=== PATIENT | male | born 1940 | race Caucasian/White ===

== ENCOUNTER → 2017-01-09 | Outpatient (CLI) | payer MEDICARE, BC ==
--- NOTE | 2017-01-09 10:58 | XR ---
EXAMINATION TYPE: XR chest 2V DATE OF EXAM: 01/09/2017 COMPARISON: 12/28/2014 HISTORY: Shortness of breath TECHNIQUE: Frontal and lateral views of the chest are obtained. FINDINGS: Scattered senescent parenchymal changes noted. Hyperinflation compatible with COPD. No evidence for infiltrate. No evidence for atelectasis. Heart size is stable. Mediastinal structures are stable and grossly unremarkable. No evidence for hilar prominence. Degenerative changes dorsal spine. IMPRESSION: 1. No evidence for acute pulmonary disease.
== END | disposition home or self-care (01) ==
LOC: RADXRMAIN 10:26
PROVIDERS: ATTEND Family Medicine
DX: R05 Cough (principal)
CPT/HCPCS: 71020

== ENCOUNTER → 2018-05-07 | Outpatient (CLI) | payer BC, MEDICARE ==
--- NOTE | 2018-05-07 16:24 | US ---
EXAMINATION TYPE: US carotid duplex BILAT DATE OF EXAM: 05/07/2018 COMPARISON: NONE CLINICAL HISTORY: 77-year-old male I35.0 STENOSIS. TECHNIQUE: Carotid duplex ultrasound examination. Indirect Doppler criteria is utilized. FINDINGS: EXAM MEASUREMENTS: RIGHT: Peak Systolic Velocity (PSV) cm/sec ----- Right CCA: 78.7 ----- Right ICA: 212.1 ----- Right ECA: 250.9 ICA/CCA ratio: 2.7 RIGHT: End Diastole cm/sec ----- Right CCA: 14.9 ----- Right ICA: 50.4 ----- Right ECA: 11.6 LEFT: Peak Systolic Velocity (PSV) cm/sec ----- Left CCA: 93.4 ----- Left ICA: 178.0 ----- Left ECA: 250.9 ICA/CCA ratio: 1.9 LEFT: End Diastole cm/sec ----- Left CCA: 16.7 ----- Left ICA: 47.9 ----- Left ECA: 25.6 VERTEBRALS (direction of flow): Right Vertebral: Antegrade Left Vertebral: Antegrade Rhythm: Normal [employer] notes: Moderate/severe amount of plaque visualized bilaterally. Elevated velocities visua lized within the right bulb, right ICA, right ECA, left ICA, and left ECA IMPRESSION: Moderate to severe atherosclerotic changes at both bifurcations. Measurements suggest moderate (50-69 %) stenosis of the right greater than left proximal ICAs. CTA to further evaluate as indicated. Criteria for Assigning % of Stenosis / Diameter reduction (Estimation based on the indirect measurements of the internal carotid artery velocities (ICA PSV). 1. Normal (no stenosis)=ICA PSV < 125 cm/s: ratio < 2.0: ICA EDV<40 cm/s. 2. Less than 50% stenosis=ICA PSV < 125 cm/s: ratio < 2.0: ICA EDV<40 cm/s. 3. 50 to 69% stenosis=ICA PSV of 125 to 230 cm/s: ration 2.0 ? 4.0: ICA EDV 40-100 cm/s. 4. Greater than 70% stenosis to near occlusion= ICA PSV > 230 cm/s: ratio > 4.0: ICA EDV > 100 cm/s. 5. Near occlusion= ICA PSV velocities may be low or undetectable: variable ratio and ICA EDV. 6. Total occlusion=unable to detect flow.
== END | disposition home or self-care (01) ==
LOC: RADUSWWP 15:23
PROVIDERS: ATTEND Family Medicine
DX: I65.23 Occlusion and stenosis of bilateral carotid arteries (principal)
CPT/HCPCS: 93880

== ENCOUNTER → 2018-08-11 | Outpatient (CLI) | payer MEDICARE ==
[2018-08-11 16:36] LABS: Blood Urea Nitrogen 15 mg/dL (9-20)
--- NOTE | 2018-08-11 21:22 | CT ---
EXAMINATION TYPE: CT angio neck DATE OF EXAM: 08/11/2018 HISTORY: dizziness. unspeficied disorder ateries. COMPARISON: 05/07/[address] DLP: 414.40 mGycm. Automated Exposure Control for Dose Reduction was Utilized. TECHNIQUE: CTA scan of the neck is performed with IV Contrast, patient injected with 65 mL of Isovue 370, axial images are obtained, coronal and sagittal reformatted images are reviewed. Three-D recons tructed images are created on an independent workstation and reviewed. FINDINGS: Carotid/Vascular Structures: There is a three-vessel vertebral arteries are codominant. Left internal carotid artery origin: There is a large calcified plaque at the origin left internal ca rotid artery contributing to severe stenosis of greater than 70%. This may be critical, the flow lume n appears to be lost on one reconstructed image. Right internal carotid artery origin: Large atheromatous plaque is present at the right internal edge tid artery. Severe stenosis greater than 70% is present. This appears less than on the left. Other: Degenerative cervical spine changes are present with loss of disc height and spondylosis. IMPRESSION: 1. Severe to critical stenosis greater than 70% within the left internal carotid artery origin. 2. Severe stenosis of the right internal carotid artery is also noted although the flow lumen can be better visualized than on the left.
== END | disposition home or self-care (01) ==
LOC: RADCTMAIN 16:00
PROVIDERS: ATTEND Family Medicine
DX: I65.23 Occlusion and stenosis of bilateral carotid arteries (principal)
CPT/HCPCS: 82565; 84520; 70498; 36415; Q9967

== ENCOUNTER → 2018-10-16 | Outpatient (CLI) | payer MEDICARE ==
[2018-10-16 11:49] LABS: Basophils # (A) 0.1 k/uL (0-0.2); Basophils % (A) 1 %; Eosinophils # (A) 0.2 k/uL (0-0.7); Eosinophils % (A) 3 %; HCT 47.4 % (39.0-53.0); Lymphocytes # (A) 2.3 k/uL (1.0-4.8); Lymphocytes % (A) 31 %; MCH 30.6 pg (25.0-35.0); MCHC 31.5 g/dL (31.0-37.0); MCV 96.9 fL (80.0-100.0); Mean Platelet Volume 6.7; Monocytes # (A) 0.6 k/uL (0-1.0); Monocytes % (A) 9 %; Neutrophils % (A) 54 %; Platelet Count 251 k/uL (150-450); RBC 4.89 m/uL (4.30-5.90); RDW 13.2 % (11.5-15.5); WBC 7.4 k/uL (3.8-10.6)
[2018-10-16 12:00] LABS: Anion Gap 8 mmol/L; Blood Urea Nitrogen 14 mg/dL (9-20); Carbon Dioxide 32 mmol/L (22-30); Chloride 100 mmol/L (98-107); Potassium 4.9 mmol/L (3.5-5.1); Sodium 140 mmol/L (137-145)
== END | disposition home or self-care (01) ==
LOC: LABPAT 11:02
PROVIDERS: ATTEND Surgery
DX: Z01.812 Encounter for preprocedural laboratory examination (principal); I65.22 Occlusion and stenosis of left carotid artery
CPT/HCPCS: 36415; 80051; 82565; 84520; 85025

== ENCOUNTER 2018-10-21 05:51 | Inpatient (IN) | payer MEDICARE ==
[~2018-10-21 05:51] MED LIST: MORPHINE SULFATE 4 MG/ML SYRINGE IV PRN; ceFAZolin IN SWFI 2 GM/20 ML SYRINGE IVP ONE
[2018-10-21] MEDS ORDERED: LIDOCAINE 1% 20 ML VIAL (10MG/ML) FOR IV START INTRADERMA ONE (06:47)
[2018-10-21] MEDS ORDERED: ONDANSETRON 4 MG/2 ML VIAL IVP ONE (06:47)
[2018-10-21] MEDS ORDERED: DEXAMETHASONE SOD PHOS (MDV) 100 MG/10 ML VIAL IV ONE (06:48)
[2018-10-21] MEDS: LACTATED RINGERS 1,000 ML IV SCH ×2 (06:48→20:34)
[2018-10-21 06:59] LABS: Glucose,Whole Blood 130 mg/dL (75-99)
[2018-10-21] MEDS ORDERED: ESMOLOL 100 MG/10 ML VIAL ONE (07:15)
[2018-10-21] MEDS ORDERED: GLYCOPYRROLATE 0.2 MG/ML 2 ML VIAL ONE (07:15)
[2018-10-21] MEDS ORDERED: ePHEDrine SULFATE/0.9% NACL/PF 50 MG/5 ML SYRINGE IV ONE (07:15)
[2018-10-21] MEDS ORDERED: SUCCINYLCHOLINE CHLORIDE 100 MG/5 ML SYR IV ONE (07:15)
[2018-10-21] MEDS ORDERED: NEOSTIGMINE 1 MG/ML 10 ML VIAL ONE (07:15)
[2018-10-21] MEDS ORDERED: ROCURONIUM BROMIDE 10 MG/ML 10 ML VIAL IV ONE (07:15)
[2018-10-21] MEDS ORDERED: MIDAZOLAM 2 MG/2 ML VIAL ONE (07:15)
[2018-10-21] MEDS ORDERED: fentaNYL (PF) 50 MCG/ML 2 ML AMP ONE (07:15)
[2018-10-21] MEDS ORDERED: PROPOFOL 10 MG/ML 20 ML VIAL IV ONE (07:15)
[2018-10-21] MEDS ORDERED: PHENYLEPHRINE-0.9% NACL SYG 1 MG/10 ML SYRINGE ONE (07:15)
[2018-10-21] MEDS ORDERED: LIDOCAINE 1% INJ 10MG/ML (20 ML MDV) ONE (07:15)
--- NOTE | 2018-10-21 07:34 | P.GSHP ---
History of Present Illness H&P Date: 10/21/18 Chief Complaint: carotid stenosis 78 year old male with history of carotid stenosis presented originally to the office secondary to worsening stenosis 80-99% on the left and 50-79% on the right seen on carotid duplex. He has been complaining of intermittent dizziness prior to the diagnosis of carotid stenosis. He was sent for CT angiogram which demonstrated severe stenosis greater than 70% on the left. He presents today for elective left carotid endarterectomy with patch angioplasty. He denies any fevers, chills, chest pain or shortness of breath. - Constitutional Constitutional: Reports as per HPI - EENT Eyes: denies blurred vision, denies decreased vision, denies diplopia Ears: bilateral: decreased hearing Ears, nose, mouth and throat: Denies dysphagia, Denies headache - Cardiovascular Cardiovascular: Denies chest pain, Denies claudication, Denies dyspnea on exertion - Respiratory Respiratory: Reports as per HPI - Gastrointestinal Gastrointestinal: Denies abdominal pain, Denies change in bowel habits, Denies coffee ground emesis, Denies constipation - Genitourinary (Male) Genitourinary: Denies dysuria, Denies flank pain, Denies genital pain - Musculoskeletal Musculoskeletal: Reports gait dysfunction, Reports leg numbness/tingling, Denies arm numbness/tingling - Integumentary Integumentary: Reports darkening of skin, Denies boils, Denies change in hair/nails - Neurological Neurological: Reports balance difficulties, Reports gait dysfunction - Psychiatric Psychiatric: Denies anxiety, Denies change in appetite, Denies depression - Hematologic/Lymphatic Hematologic/Lymphatic: Reports easy bruising, Denies easy bleeding Past Medical History Past Medical History: Coronary Artery Disease (CAD), Chest Pain / Angina, Diabetes Mellitus, GERD/Reflux, Hyperlipidemia, Hypertension, Myocardial Infarction ([place]), Osteoarthritis (OA) Additional Past Medical History / Comment(s): "borderline" diabetes- DIET CON TROLLED, occasional chest discomfort Last Myocardial Infarction Date:: 2012 History of Any Multi-Drug Resistant Organisms: None Reported Past Surgical History: Back Surgery, Coronary Bypass/CABG, Heart Catheterization With Stent, Orthopedic Surgery Additional Past Surgical History / Comment(s): CURRENT ISSUE: DIZZINESS, HAS BEEN USING CANE FOR STABILITY. CABG x 2,foot surg, heel spurs, knee surg., thumb surg Past Anesthesia/Blood Transfusion Reactions: No Reported Reaction Date of Last Stent Placement:: 2012 Past Psychological History: No Psychological Hx Reported Smoking Status: Light tobacco smoker Past Alcohol Use History: Occasional Additional Past Alcohol Use History / Comment(s): smokes occasional cigar Past Drug Use History: None Reported - Past Family History Father Family Medical History: Cancer, Hypertension Additional Family Medical History / Comment(s): COLON CA Medications and Allergies Home Medications Medication Instructions Recorded Confirmed Type Aspirin EC [Ecotrin Low Dose] 81 mg PO HS #30 tablet.dr 03/13/14 10/21/18 Rx Carvedilol [Coreg] 6.25 mg PO BID-W/MEALS #60 tab 12/30/14 10/21/18 Rx Nitroglycerin Sl Tabs [Nitrostat] 0.4 mg SUBLINGUAL Q5M PRN #30 tab 12/30/14 10/21/18 Rx Ticagrelor [Brilinta] 90 mg PO BID #60 tab 12/30/14 10/21/18 Rx Calcium Carbonate [Tums] 1 - 2 tab PO BID PRN 10/17/18 10/21/18 History Isosorbide Mononitrate ER [Imdur] 30 mg PO QAM 10/17/18 10/21/18 History Lisinopril [Zestril] 2.5 mg PO HS 10/17/18 10/21/18 History Lovastatin [Mevacor] 20 mg PO HS 10/17/18 10/21/18 History Allergies Allergy/AdvReac Type Severity Reaction Status Date / Time Iodinated Contrast- Oral and Allergy Rash/Hives Verified 10/21/18 06:17 IV Dye [Iodinated Contrast Media - IV Dye] poison justin extract Allergy Unknown Verified 10/21/18 06:17 Surgical - Exam Vital Signs Temp Pulse Resp BP Pulse Ox 97.1 F L 73 18 143/67 94 L 10/21/18 06:46 10/21/18 06:46 10/21/18 06:46 10/21/18 06:46 10/21/18 06:46 - General well developed, well nourished, no distress - Eyes PERRL, normal ocular movement - ENT normal pinna, normal nares - Neck no masses, trachea midline - Respiratory normal expansion - Cardiovascular Rhythm: regular - Abdomen Abdomen: soft, non tender - Integumentary no rash, no growths - Neurologic normal sensation - Psychiatric oriented to time, oriented to person, oriented to place, speech is normal No focal deficits. [employer] strength is equal bilaterally. Tongue is midline no facial droop. Results - Labs Abnormal Lab Results - Last 24 Hours (Table) 10/21/18 Range/Units 06:43 POC Glucose (mg/dL) 130 H (75-99) mg/dL Assessment and Plan (1) Carotid stenosis, bilateral Current Visit: Yes Status: Acute Priority: Medium Code(s): I65.23 - OCCLUSION AND STENOSIS OF BILATERAL CAROTID ARTERIES SNOMED Code(s): 90532290 (2) Carotid stenosis, left Current Visit: Yes Status: Acute Priority: High Code(s): I65.22 - OCCLUSION AND STENOSIS OF LEFT CAROTID ARTERY SNOMED Code(s): 726775947046361 Plan: To the OR for left carotid endarterectomy with patch angioplasty.
[2018-10-21] MEDS ORDERED: SODIUM CHLORIDE 0.9% 500 ML 500 ML with HEPARIN SODIUM,PORCINE 5,000 UNIT IV ONE ×2 (08:07)
[2018-10-21] MEDS ORDERED: THROMBIN (BOVINE) 5,000 UNIT VIAL TOPICAL ONE (08:08)
[2018-10-21] MEDS ORDERED: GELATIN SPONGE,ABSORB (LARGE) 1 EACH SPONGE TOPICAL ONE (08:08)
[2018-10-21] MEDS ORDERED: ceFAZolin 2,000 MG in SODIUM CHLORIDE 0.9% 1,000 ML IRRIGATION ONE (08:14)
[2018-10-21] MEDS ORDERED: LACTATED RINGERS 1,000 ML IV ONE ×4 (09:22→09:50)
[2018-10-21] MEDS ORDERED: MAG HYDROX/AL HYDROX/SIMETH 30 ML CUP PO PRN (09:46)
[2018-10-21] MEDS ORDERED: BENZOCAINE/MENTHOL LOZENG 1 EACH LOZENGE MUCOUS MEM PRN (09:46)
[2018-10-21] MEDS ORDERED: MORPHINE SULFATE 2 MG/ML SYRINGE IVP PRN (09:46)
[2018-10-21] MEDS ORDERED: TRIMETHOBENZAMIDE 100 MG/ML 2 ML VIAL IM PRN (09:46)
[2018-10-21] MEDS ORDERED: ACETAMINOPHEN TAB 325 MG TAB PO PRN (09:46)
--- NOTE | 2018-10-21 09:46 | P.OP ---
Date of Procedure: 10/21/18 Preoperative Diagnosis: Asymptomatic left internal carotid artery stenosis Postoperative Diagnosis: same Procedure(s) Performed: Left carotid endarterectomy with patch angioplasty Implants: bovine pericardial patch Anesthesia: KWABENA Surgeon: Alex Virgen Estimated Blood Loss (ml): 20 IV fluids (ml): 900 Urine output (ml): 50 Pathology: other (carotid plaque) Condition: stable Disposition: PACU Indications for Procedure: 78 year old male with left internal carotid artery stenosis 80-99% presents for elective carotid endarterectomy. Description of Procedure: After written informed consent was obtained the patient all risks benefits and competitions were described the patient is brought to the operative suite and laid in a beachchair position. The area of the left neck was prepped and draped in usual sterile fashion after appropriate anesthetic was performed per the anesthesiologist. A timeout was performed in normal fashion, antibiotics were administered prior to incision. An oblique incision was created just anterior to the sternocleidomastoid muscle and dissection was carried down through the platysma and soft tissue to the carotid sheath. The carotid sheath was then dissected free down to the common carotid artery. Upon dissection the facial vein was encountered and was suture ligated in normal fashion. Meticulous dissection was carried around the common carotid artery and controlled with vessel loops. Dissection was then carried up towards the external carotid and internal carotid arteries. There was dense inflammatory process noted surround ing the vessel. The superior thyroid, external carotid and internal carotid artery were then dissected free in a circumferential manner and controlled with vessel loops. Patient was administered heparin and followed with serial ACTs for appropriate heparinization. Once ACT was over 200 the vessels were then controlled with vascular clamps and an arteriotomy was created at the common carotid artery extending into the internal carotid artery with an 11 blade scalpel and Pott Lopez scissors. Once in the internal carotid artery stump pressures were obtained and demonstrated and mean arterial pressure of 80 and therefore no need for shunting. Endarterectomy was then performed with a [place]/elevator and the plaque was removed from the common carotid extending into the internal carotid artery where it was feathered. Eversion technique was also utilized for the external carotid artery. All free debris was then removed. The distal part of the internal carotid artery was tacked with 7-0 Prolene suture. A bovine pericardial patch was then utilized for patch angioplasty which was performed with a 6-0 Prolene suture in a running fashion. Prior to last sutures being placed the control was released revealing good pulsatile flow through the common carotid artery which was reclamped and control of the internal carotid artery was released revealing good brisk backbleeding. Final sutures were then placed and control was released first from the common carotid external carotid and then finally the internal carotid artery. The area was then copiously irrigated and hemostasis was assured with Gelfoam and thrombin. A 10-Vietnamese LFORENTIN drain was placed in normal fashion. The area was then copiously irrigated with antibiotic solution and the incision was closed in a multilayer fashion. Skin was cleansed and dressings were placed. Patient was awoken in the operating room was following commands and showing no focal deficits. He is moving all extremities to command and tongue was midline. Patient was then sent to PACU for recovery.
[2018-10-21] MEDS ORDERED: NITROGLYCERIN SL TABS 0.4 MG TAB SUBLINGUAL PRN (09:48)
[2018-10-21 11:06] LABS: Basophils % (A) 0 %; Eosinophils # (A) 0.1 k/uL (0-0.7); Eosinophils % (A) 1 %; HGB 13.6 gm/dL (13.0-17.5); Lymphocytes # (A) 0.7 k/uL (1.0-4.8); Lymphocytes % (A) 8 %; MCHC 32.3 g/dL (31.0-37.0); MCV 96.1 fL (80.0-100.0); Mean Platelet Volume 6.7; Monocytes # (A) 0.3 k/uL (0-1.0); Monocytes % (A) 4 %; Neutrophils # (A) 6.7 k/uL (1.3-7.7); Neutrophils % (A) 86 %; Platelet Count 214 k/uL (150-450); RBC 4.37 m/uL (4.30-5.90); WBC 7.8 k/uL (3.8-10.6)
[2018-10-21 11:13] LABS: Glucose,Whole Blood 157 mg/dL (75-99)
[2018-10-21 15:06] LABS: Glucose,Whole Blood 144 mg/dL (75-99)
[2018-10-21] MEDS: HYDROcodone/APAP 5-325MG 1 EACH TAB PO PRN ×2 (17:38→23:31)
[2018-10-21] MEDS: HEPARIN SODIUM,PORCINE 5,000 UNIT/ML 1 ML VIAL SQ SCH ×2 (19:17→23:25)
[2018-10-21] MEDS: CARVEDILOL 6.25 MG TAB PO SCH (19:17)
[2018-10-21] MEDS: TICAGRELOR 90 MG TAB PO SCH (20:32)
[2018-10-21] MEDS ORDERED: LISINOPRIL 2.5 MG TAB PO SCH (21:00)
[2018-10-21] MEDS ORDERED: ATORVASTATIN 10 MG TAB PO SCH (21:00)
[2018-10-21] MEDS ORDERED: ASPIRIN 81 MG PO SCH (21:00)
[2018-10-22] MEDS ORDERED: SODIUM CHLORIDE 0.9% 1,000 ML IV ONE (01:49)
[2018-10-22 04:52] LABS: Basophils % (A) 0 %; Eosinophils % (A) 1 %; HCT 36.1 % (39.0-53.0); HGB 11.5 gm/dL (13.0-17.5); Lymphocytes # (A) 1.8 k/uL (1.0-4.8); Lymphocytes % (A) 19 %; MCH 30.8 pg (25.0-35.0); MCV 96.3 fL (80.0-100.0); Mean Platelet Volume 7.6; Monocytes # (A) 0.6 k/uL (0-1.0); Monocytes % (A) 6 %; Neutrophils # (A) 6.7 k/uL (1.3-7.7); Neutrophils % (A) 71 %; Platelet Count 179 k/uL (150-450); RBC 3.75 m/uL (4.30-5.90); RDW 13.1 % (11.5-15.5); WBC 9.4 k/uL (3.8-10.6)
[2018-10-22 05:23] LABS: Anion Gap 5 mmol/L; Blood Urea Nitrogen 12 mg/dL (9-20); Calcium 8.5 mg/dL (8.4-10.2); Carbon Dioxide 29 mmol/L (22-30); Chloride 101 mmol/L (98-107); Glucose 101 mg/dL (74-99); Potassium 4.4 mmol/L (3.5-5.1); Sodium 135 mmol/L (137-145)
[2018-10-22] MEDS: CARVEDILOL 6.25 MG TAB PO SCH (08:38)
[2018-10-22] MEDS: HEPARIN SODIUM,PORCINE 5,000 UNIT/ML 1 ML VIAL SQ SCH (08:45)
[2018-10-22] MEDS: TICAGRELOR 90 MG TAB PO SCH (08:45)
--- NOTE | 2018-10-22 08:54 | CONS ---
CONSULTATION A 78-year-old white male, history diabetes, hypertension, obesity, dyslipidemia, status post coronary artery disease, status post carotid endarterectomy of the left neck. Stable in ICU, sitting up in a 45 degree angle, talking. He is on Lipitor 10 mg daily, Coreg 6.25 b.i.d., heparin 5000 subcu q.8, [place] 05/325 q.6, Imdur 30 q.a.m., Zestril 2.5 mg daily, Nitrostat, Brilinta 90 mg b.i.d. REVIEW OF SYSTEMS: Fourteen-point review of systems negative except for mentioned in HPI. PHYSICAL EXAMINATION: Pulse is 60s, blood pressure is 87/49, respiratory 14 to 16, his latest blood pressure is 108/39. CARDIOVASCULAR: S1, S2. LUNGS: Transmitted upper airway sounds. HEMATOLOGY: Negative Homans. PSYCH: Fair mood and affect. ABDOMEN: Soft, distended. NECK: Shows a bandage over the left side of his neck. ASSESSMENT: 1. Status post carotid endarterectomy. 2. Hypertension. 3. Diabetes mellitus. 4. Coronary artery disease. The patient is doing well postoperatively. Possibly given fluids due to hypotension. Monitor his blood pressure accordingly. Cardiac medicines are being given. MMODL / IJN: [id number] /
[2018-10-22] MEDS ORDERED: ISOSORBIDE MONONITRATE ER 30 MG TAB.ER.24H PO SCH (09:00)
[2018-10-22 12:16] VITALS: BP 101/51; PULSE 64; RESP 19; TEMP 98
--- NOTE | 2018-10-22 12:32 | P.WNDSOAP ---
Subjective Progress Note Date: 10/22/18 Principal diagnosis: Critical left carotid stenosis Patient has no complaints. He has had no symptoms neurologically. He has ambulated without difficulty. He is voiding. He has minimal discomfort in his neck. Objective - Vital Signs Vital signs: Vital Signs Temp 98.0 F 10/22/18 12:00 Pulse 64 10/22/18 12:00 Resp 19 10/22/18 12:00 BP 101/51 10/22/18 12:00 Pulse Ox 94 L 10/22/18 12:00 Intake & Output 10/21/18 10/22/18 10/22/18 18:59 06:59 18:59 Intake Total 1802 2340 1300 Output Total 390 540 20 Balance 1412 1800 1280 Weight 104.2 kg Intake: IV 1502 2000 600 LR @ 100 1000 600 Sodium Chloride 0.9% 1, 1000 000 ml @ 999 mls/hr IV . Q1H1M ONE Rx#:[id number] Intake, IV Titration 300 100 Amount Lactated Ringers 1,000 ml 300 100 @ 20 mls/hr IV .Q24H JODIE Rx#:[id number] Oral 240 700 Output: Drainage 20 Left Neck 20 Urine 370 540 Estimated Blood Loss 20 Other: Voiding Method Indwelling Catheter Indwelling Catheter Toilet # Voids 1 # Bowel Movements 1 ABP, PAP, CO, CI - Last Documented Arterial Blood Pressure 95/40 - Exam Vital signs are stable. He has had some pressures in the 90s which have been asymptomatic. He is neurologically intact. His neck shows no swelling or drainage and the incision is intact. - Labs CBC & Chem 7: 10/22/18 04:19 10/22/18 04:19 Labs: Abnormal Lab Results - Last 24 Hours (Table) 10/21/18 10/22/18 10/22/18 Range/Units 15:00 04:19 04:19 RBC 3.75 L (4.30-5.90) m/uL Hgb 11.5 L (13.0-17.5) gm/dL Hct 36.1 L (39.0-53.0) % Sodium 135 L (137-145) mmol/L Creatinine 0.60 L (0.66-1.25) mg/dL Glucose 101 H (74-99) mg/dL POC Glucose (mg/dL) 144 H (75-99) mg/dL Assessment and Plan (1) Carotid stenosis, left Current Visit: Yes Status: Acute Priority: High Code(s): I65.22 - OCCLUSION AND STENOSIS OF LEFT CAROTID ARTERY SNOMED Code(s): 097716115589526 Plan: The patient has recovered nicely from his left carotid endarterectomy. We have given him thorough wound care instructions. We've given him activity instructions. He will at is antihypertensives one by one at home as long as his blood pressure remains over 100. He does take his blood pressure at home and is used to doing this.
== END 2018-10-22 13:53 | disposition home or self-care (01) | DRG 39 ==
LOC: 2ORMAIN 05:51 → 2SICU 14:45
PROVIDERS: ADMIT Surgery; ATTEND Surgery
PROC: 03UL0KZ Supplement Left Internal Carotid Artery with Nonautologous Tissue Substitute, Open Approach (ICD-10-PCS; 2018-10-21)
PROC: 03CL0ZZ Extirpation of Matter from Left Internal Carotid Artery, Open Approach (ICD-10-PCS; principal; 2018-10-21 07:30)
DX: I65.23 Occlusion and stenosis of bilateral carotid arteries (principal); E11.9 Type 2 diabetes mellitus without complications; I25.10 Atherosclerotic heart disease of native coronary artery without angina pectoris; K21.9 Gastro-esophageal reflux disease without esophagitis; E78.5 Hyperlipidemia, unspecified; I10 Essential (primary) hypertension; I25.2 Old myocardial infarction; E78.00 Pure hypercholesterolemia, unspecified; I83.93 Asymptomatic varicose veins of bilateral lower extremities; M19.042 Primary osteoarthritis, left hand; M19.041 Primary osteoarthritis, right hand; E66.9 Obesity, unspecified; Z68.28 Body mass index [BMI] 28.0-28.9, adult; F17.290 Nicotine dependence, other tobacco product, uncomplicated; Z71.6 Tobacco abuse counseling; Z79.02 Long term (current) use of antithrombotics/antiplatelets; Z79.82 Long term (current) use of aspirin; Z79.899 Other long term (current) drug therapy; Z80.0 Family history of malignant neoplasm of digestive organs; Z95.1 Presence of aortocoronary bypass graft; Z95.5 Presence of coronary angioplasty implant and graft; Z91.041 Radiographic dye allergy status; Z91.048 Other nonmedicinal substance allergy status; Z82.49 Family history of ischemic heart disease and other diseases of the circulatory system
CPT/HCPCS: 80048; 85025; 86850; 86900; 86901; 88304; 88311

== ENCOUNTER 2018-12-19 10:56 | Observation (INO) | payer MEDICARE ==
[2018-12-19 11:49] LABS: Glucose,Whole Blood 125 mg/dL (75-99)
[2018-12-19] MEDS ORDERED: IPRATROPIUM-ALBUTEROL 3 ML NEB INHALATION PRN (13:00)
[2018-12-19] MEDS ORDERED: NITROGLYCERIN SL TABS 0.4 MG TAB SUBLINGUAL PRN (13:02)
--- NOTE | 2018-12-19 13:57 | P.CNPUL ---
History of Present Illness Consult date: 12/19/18 Reason for consult: dyspnea, cough, COPD, pneumonia Chief complaint: Symptoms of ongoing cough with fever for almost a week History of present illness: 78-year-old male with history of significant coronary artery disease history of prior bypass surgery has been more short of breath for last 2-3 months but however about a week ago having cough congestion and low-grade fever up to point getting more short of breath than baseline for the last 2 days decided to come in the hospital for further evaluation, x-ray is suggestive of right lower lobe developing infiltrate, denies any hemoptysis denies any night sweats fever or chills he's been evaluated by cardiovascular services for chronic congestive heart failure and coronary artery disease Review of Systems All systems: negative Past Medical History Past Medical History: Coronary Artery Disease (CAD), Chest Pain / Angina, Diabetes Mellitus, GERD/Reflux, Hyperlipidemia, Hypertension, Myocardial Infarction ([place]), Osteoarthritis ([place]), Pneumonia, Vascular Disorder Additional Past Medical History / Comment(s): "Borderline" diabetes- DIET CONTROLLED, vertigo, murmur, chronic back pain, occasional lower extremity edema, varicosities, diverticular disease, sinus problems Last Myocardial Infarction Date:: 2012 History of Any Multi-Drug Resistant Organisms: None Reported Past Surgical History: Back Surgery, Coronary Bypass/CABG, Heart Catheterization With Stent, Orthopedic Surgery Additional Past Surgical History / Comment(s): 10/21/18 L caratid endartectomy, 1994 CABG 3 vessels, 2007 CABG 3 vessels, PCI with several stents, low back surgery, R foot hammer toe surgery, R heel spur surgery, L knee arthroscopy, R thumb surgery d/t fracture, pilonidal cyst, colonoscopy. Past Anesthesia/Blood Transfusion Reactions: No Reported Reaction Date of Last Stent Placement:: 2012 Smoking Status: Former smoker - Past Family History Mother Family Medical History: Cancer, Diabetes Mellitus Additional Family Medical History / Comment(s): Mother of liver cancer. Father Family Medical History: Cancer, Hypertension Additional Family Medical History / Comment(s): COLON CA Medications and Allergies Home Medications Medication Instructions Recorded Confirmed Type Aspirin EC [Ecotrin Low Dose] 81 mg PO HS #30 tablet. 03/13/14 12/19/18 Rx Carvedilol [Coreg] 6.25 mg PO BID-W/MEALS #60 tab 12/30/14 12/19/18 Rx Nitroglycerin Sl Tabs [Nitrostat] 0.4 mg SUBLINGUAL Q5M PRN #30 tab 12/30/14 12/19/18 Rx Ticagrelor [Brilinta] 90 mg PO BID #60 tab 12/30/14 12/19/18 Rx Isosorbide Mononitrate ER [Imdur] 30 mg PO QAM 10/17/18 12/19/18 History Lisinopril [Zestril] 2.5 mg PO HS 10/17/18 12/19/18 History Lovastatin [Mevacor] 20 mg PO HS 10/17/18 12/19/18 History Allergies Allergy/AdvReac Type Severity Reaction Status Date / Time Iodinated Contrast- Oral and Allergy Rash/Hives Verified 12/19/18 11:54 IV Dye [Iodinated Contrast Media - IV Dye] poison justin extract Allergy Unknown Verified 12/19/18 11:54 Physical Exam Vitals: Intake and Output 12/18/18 12/19/18 12/19/18 22:59 06:59 14:59 Other: Weight 103 kg - Constitutional General appearance: cooperative, disheveled, mild distress, morbidly obese - EENT Eyes: EOMI, PERRLA, normal appearance ENT: normal oropharynx Ears: bilateral: normal - Neck Neck: normal ROM Carotids: bilateral: upstroke normal Thyroid: bilateral: normal size - Respiratory Respiratory: bilateral: diminished, rales (Right more than left), negative: CTA, dullness, rhonchi, wheezing, prolonged expiration, prolonged inspiration, other - Cardiovascular Rhythm: regular Heart sounds: normal: S1, S2 - Gastrointestinal General gastrointestinal: decreased bowel sounds, distended, normal bowel sounds - Integumentary Integumentary: normal - Neurologic Neurologic: CNII-XII intact - Musculoskeletal Musculoskeletal: gait normal, generalized weakness, strength equal bilaterally - Psychiatric Psychiatric: A&O x's 3, appropriate affect, intact judgment & insight Results - Laboratory Findings Abnormal lab findings: Abnormal Labs 12/19/18 11:38 POC Glucose (mg/dL) 125 H - Diagnostic Findings Chest x-ray: report reviewed, image reviewed (Developing right lower lobe infiltrate) Assessment and Plan Assessment: Right lower lobe pneumonia Increased cough congestion shortness of breath or probably related to that Coronary Artery disease Hypertension hypertensive cardiovascular disease Moderate obesity Component of heart failure suspect acute on chronic systolic heart failure Plan: Agree with gentle diuresis We'll start broad spectrum antibiotics Agree with bronchodilators Patient might need a sleep study as outpatient Further plan of care as per clinical response of the patient Time with Patient: Greater than 30
[2018-12-19 14:00] LABS: Basophils # (A) 0.1 k/uL (0-0.2); Basophils % (A) 1 %; Eosinophils # (A) 0.3 k/uL (0-0.7); Eosinophils % (A) 3 %; HCT 46.8 % (39.0-53.0); Lymphocytes # (A) 2.2 k/uL (1.0-4.8); Lymphocytes % (A) 30 %; MCH 30.2 pg (25.0-35.0); MCHC 31.3 g/dL (31.0-37.0); MCV 96.5 fL (80.0-100.0); Mean Platelet Volume 7.1; Monocytes # (A) 0.7 k/uL (0-1.0); Monocytes % (A) 9 %; Neutrophils # (A) 3.9 k/uL (1.3-7.7); Neutrophils % (A) 54 %; Platelet Count 236 k/uL (150-450); RBC 4.85 m/uL (4.30-5.90); RDW 13.1 % (11.5-15.5); WBC 7.3 k/uL (3.8-10.6)
[2018-12-19] MEDS: PANTOPRAZOLE 40 MG/10 ML VIAL IVP SCH (14:02)
[2018-12-19] MEDS: FUROSEMIDE 10 MG/ML 2 ML VIAL IV SCH ×2 (14:02→20:40)
[2018-12-19 14:11] LABS: HGB 14.6 gm/dL (13.0-17.5)
[2018-12-19 14:14] LABS: ALT 18 U/L (21-72); AST 21 U/L (17-59); Albumin 3.9 g/dL (3.5-5.0); Alkaline Phosphatase 58 U/L (38-126); Anion Gap 6 mmol/L; Blood Urea Nitrogen 14 mg/dL (9-20); Calcium 9.3 mg/dL (8.4-10.2); Carbon Dioxide 34 mmol/L (22-30); Chloride 98 mmol/L (98-107); Glucose 163 mg/dL (74-99); Potassium 4.6 mmol/L (3.5-5.1); Sodium 138 mmol/L (137-145); Total Bilirubin 0.6 mg/dL (0.2-1.3); Total Protein 6.8 g/dL (6.3-8.2)
--- NOTE | 2018-12-19 14:52 | XR ---
EXAMINATION TYPE: XR chest 2V DATE OF EXAM: 12/19/2018 COMPARISON: Prior chest x-ray 01/09/2017 HISTORY: Shortness of breath TECHNIQUE: Frontal and lateral views of the chest are obtained. FINDINGS: Patient is post median sternotomy. There are overlying cardiac leads. Right hemidiaphragm i s mildly elevated. There is no focal air space opacity, pleural effusion, or pneumothorax seen. The cardiac silhouette size is within normal limits. The osseous structures are intact. IMPRESSION: No acute cardiopulmonary process.
[2018-12-19] MEDS: IPRATROPIUM-ALBUTEROL 3 ML NEB INHALATION SCH ×2 (16:05→19:55)
[2018-12-19] MEDS: INSULIN ASPART (NovoLOG) 100 UNIT/ML VIAL SQ SCH ×2 (17:11→20:40)
[2018-12-19] MEDS: CARVEDILOL 6.25 MG TAB PO SCH (17:12)
[2018-12-19 17:16] LABS: Glucose,Whole Blood 129 mg/dL (75-99)
--- NOTE | 2018-12-19 18:03 | CONS ---
CONSULTATION Mr. Thakur is a 78-year-old male who is followed on a regular basis by Dr. Astrid Nance and presented with symptoms of progressive dyspnea. He is a direct admit from Dr. Carter's office. He had coronary artery bypass grafting and subsequent redo bypass with saphenous vein graft to the circumflex and to the right coronary artery, and he had a prior SIERRA to the LAD. He has been doing relatively well, but recently for the last week or so he has been complaining of progressive dyspnea, yesterday worse, unable to sleep. He has no weight gain. He has mild peripheral edema that according to him has not changed. He has recent sinus drainage. He denies any chest discomfort. No dizziness. No palpitation. He has no history of malignant arrhythmia. Since his last cardiac catheterization performed in December of 2014, he has been doing well, according to him. At that time he had a patent SIERRA to LAD and a patent saphenous vein graft to the left circumflex and saphenous vein graft to the PDA. The LAD is totally occluded proximally. The right coronary artery is totally occluded proximally as well and the left circumflex has diffuse disease with calcification. The patient's coronary risk factors are remarkable for hypertension and hyperlipidemia. He is a nonsmoker and is nondiabetic. His medication included: 1. Aspirin. 2. Coreg 6.25 mg twice a day. 3. Isosorbide mononitrate 30 mg daily. 4. Lisinopril 2.5 mg daily. 5. Lovastatin 20 mg daily. 6. Brilinta 90 mg twice a day. REVIEW OF SYSTEMS: RESPIRATORY SYSTEM: He has dyspnea on exertion. He has some sinus drainage, marked cough. No wheezing. GI SYSTEM: No recent GI bleeding. No peptic ulcer disease. SYSTEM: No dysuria or hematuria. NERVOUS SYSTEM: No history of stroke or seizure. PHYSICAL EXAMINATION: He is a 78-year-old male, alert, oriented, in no apparent distress. Blood pressure 130/73 with a heart rate in the 80s. HEAD: Normocephalic. Eyes: Sclerae anicteric. NECK: Good carotid upstroke. No bruit. LUNGS: A few crackles at the bases. HEART: Regular rate, rhythm. S1, S2. No S3, with systolic ejection murmur 2/6 heard at the base, ejection type. No diastolic murmur no rub. ABDOMEN: Soft, nontender. Positive bowel sounds. No organomegaly. EXTREMITIES: Trace to 1+ edema. Lab data and EKG are pending. IMPRESSION: 1. Symptoms of progressive dyspnea of unclear etiology in a patient with known history of coronary artery disease. There are no overt signs of angina pectoris. 2. Status post redo coronary artery bypass grafting and prior percutaneous revascularization. 3. History of hypertension. 4. History of hyperlipidemia. RECOMMENDATIONS: The patient will be continued on his home medication. I will add IV Lasix for him for now. I will obtain an echocardiogram with Doppler. Follow his cardiac enzymes. Depending on the results of his testing, further recommendations will be made. Thank you for this consult. Will follow with you. SHAWANDA / ABDIAZIZ: [id number] /
[2018-12-19] MEDS: TICAGRELOR 90 MG TAB PO SCH (20:40)
[2018-12-19 20:41] LABS: Glucose,Whole Blood 154 mg/dL (75-99)
[2018-12-19] MEDS ORDERED: ATORVASTATIN 40 MG TAB PO SCH (21:00)
[2018-12-19] MEDS ORDERED: ASPIRIN 81 MG PO SCH (21:00)
[2018-12-19] MEDS ORDERED: ATORVASTATIN 10 MG TAB PO SCH (21:00)
--- NOTE | 2018-12-19 22:04 | CT ---
EXAMINATION TYPE: CT chest wo con DATE OF EXAM: 12/19/2018 COMPARISON: None HISTORY: dyspnea CT DLP: 451.9 mGycm. Automated Exposure Control for Dose Reduction was Utilized. TECHNIQUE: CT scan of the thorax is performed without IV contrast. FINDINGS: There is some coarse interstitial linear density in the right lower lobe consistent with some scarrin g and atelectasis. There is atherosclerotic vascular calcification. There is coronary artery calcific ation. Thoracic aorta is atheromatous. There are no hilar masses. There is no mediastinal adenopathy. There is no pericardial effusion. Upper abdominal soft tissues are intact. There is 2 cm cystic in t he anterior right lobe of the liver. The thoracic spine is intact. I see no bony destructive process. There are sternal wires. IMPRESSION: There is some scarring and atelectasis at the right posterior lung base. No evidence of a pulmonary mass. Atherosclerotic vascular disease.
[2018-12-20 06:03] LABS: Glucose,Whole Blood 121 mg/dL (75-99)
[2018-12-20] MEDS: INSULIN ASPART (NovoLOG) 100 UNIT/ML VIAL SQ SCH ×2 (06:11→12:05)
[2018-12-20] MEDS: CARVEDILOL 6.25 MG TAB PO SCH (06:45)
[2018-12-20 07:38] LABS: Basophils % (A) 1 %; Eosinophils # (A) 0.2 k/uL (0-0.7); Eosinophils % (A) 3 %; HCT 52.9 % (39.0-53.0); HGB 16.3 gm/dL (13.0-17.5); Lymphocytes # (A) 2.1 k/uL (1.0-4.8); Lymphocytes % (A) 25 %; MCH 29.5 pg (25.0-35.0); MCHC 30.8 g/dL (31.0-37.0); MCV 95.9 fL (80.0-100.0); Mean Platelet Volume 6.9; Monocytes # (A) 0.6 k/uL (0-1.0); Monocytes % (A) 7 %; Neutrophils # (A) 5.3 k/uL (1.3-7.7); Neutrophils % (A) 63 %; Platelet Count 249 k/uL (150-450); RBC 5.51 m/uL (4.30-5.90); RDW 13.1 % (11.5-15.5); WBC 8.4 k/uL (3.8-10.6)
[2018-12-20] MEDS: IPRATROPIUM-ALBUTEROL 3 ML NEB INHALATION SCH ×2 (07:45→11:27)
[2018-12-20 08:00] LABS: Anion Gap 5 mmol/L; Blood Urea Nitrogen 15 mg/dL (9-20); Calcium 9.9 mg/dL (8.4-10.2); Carbon Dioxide 37 mmol/L (22-30); Chloride 96 mmol/L (98-107); Glucose 135 mg/dL (74-99); Potassium 4.6 mmol/L (3.5-5.1); Sodium 138 mmol/L (137-145)
--- NOTE | 2018-12-20 08:53 | ECHOF ---
Referral Reason:LV fx MEASUREMENTS -------- HEIGHT: 185.4 cm WEIGHT: 103.0 kg BP: 106/73 RVIDd: 2.8 cm (< 3.3) IVSd: 1.2 cm (0.6 - 1.1) LVIDd: 5.2 cm (3.9 - 5.3) LVPWd: 1.3 cm (0.6 - 1.1) IVSs: 1.6 cm LVIDs: 3.9 cm LVPWs: 1.6 cm LA Diam: 3.8 cm (2.7 - 3.8) LAESV Index (A-L): 27.89 ml/m Ao Diam: 4.1 cm (2.0 - 3.7) AV Cusp: 1.9 cm (1.5 - 2.6) MV EXCURSION: 13.536 mm (> 18.000) MV EF SLOPE: 39 mm/s (70 - 150) EPSS: 1.4 cm MV E Shaw: 1.18 m/s MV DecT: 271 ms MV A Shaw: 1.34 m/s MV E/A Ratio: 0.88 RAP: 5.00 mmHg RVSP: 28.15 mmHg FINDINGS -------- Sinus rhythm. This was a technically difficult study with suboptimal apical views. The left ventricular size is normal. There is mild concentric left ventricular hypertrophy. Overa ll left ventricular systolic function is low-normal with, an EF between 50 - 55 %. Basal inferosept al LV wall motion is hypokinetic. Mid inferoseptal LV wall motion is hypokinetic. The right ventricle is normal in size. Normal LA size by volume 22+/-6 ml/m2. The right atrium is normal in size. 3 ml of Lumason was utilized for enhancement of images. Aneurysmal Interatrial septum. There is mild aortic valve sclerosis. Mild mitral annular calcification present. Mild tricuspid regurgitation present. Right ventricular systolic pressure is normal at < 35 mmHg. Trace/mild (physiologic) pulmonic regurgitation. The aortic root is dilated measuring 4.1cm. IVC Not well visulized. There is no pericardial effusion. CONCLUSIONS -------- 1. Sinus rhythm. 2. This was a technically difficult study with suboptimal apical views. 3. The left ventricular size is normal. 4. There is mild concentric left ventricular hypertrophy. 5. Overall left ventricular systolic function is low-normal with, an EF between 50 - 55 %. 6. Basal inferoseptal LV wall motion is hypokinetic. 7. Mid inferoseptal LV wall motion is hypokinetic. 8. The right ventricle is normal in size. 9. Normal LA size by volume 22+/-6 ml/m2. 10. The right atrium is normal in size. 11. 3 ml of Lumason was utilized for enhancement of images. 12. Aneurysmal Interatrial septum. 13. There is mild aortic valve sclerosis. 14. Mild mitral annular calcification present. 15. Mild tricuspid regurgitation present. 16. Right ventricular systolic pressure is normal at < 35 mmHg. 17. Trace/mild (physiologic) pulmonic regurgitation. 18. The aortic root is dilated measuring 4.1cm. 19. IVC Not well visulized. 20. There is no pericardial effusion. SENIOR MEDICAL DIRECTOR: Violeta Rdz RDCS
[2018-12-20] MEDS ORDERED: LISINOPRIL 2.5 MG TAB PO SCH (09:00)
[2018-12-20] MEDS: FUROSEMIDE 10 MG/ML 2 ML VIAL IV SCH (09:25)
[2018-12-20] MEDS: PANTOPRAZOLE 40 MG/10 ML VIAL IVP SCH (09:26)
[2018-12-20] MEDS: TICAGRELOR 90 MG TAB PO SCH (09:26)
[2018-12-20 10:31] VITALS: BP 152/73; RESP 18; TEMP 98.5
[2018-12-20 11:37] VITALS: PULSE 80
[2018-12-20 11:55] LABS: Glucose,Whole Blood 134 mg/dL (75-99)
[2018-12-20 12:19] VITALS: BMI 29.6
--- NOTE | 2018-12-20 14:45 | PN ---
PROGRESS NOTE Mr. Thakur is a 78-year-old male with a history of coronary artery disease status post multiple percutaneous revascularization who presented with symptoms of dyspnea with no overt signs of congestive heart failure. He is feeling much better today. His breathing is stable. He is denying any chest pain. He denies any dizziness or palpitation. He had an echocardiogram revealed a preserved systolic function with a mild tricuspid regurgitation. He continues to be at this time on aspirin once a day, Lipitor 40 mg daily, Coreg 6.25 mg twice a day, Lasix 20 mg IV q.12 hours, lisinopril 2.5 mg daily and Brilinta 90 mg daily. PHYSICAL EXAMINATION: Blood pressure running in the 130s with a heart rate in the 80s. LUNGS: No wheezes. HEART: Regular rate and rhythm, S1, S2. No S3. No rub. ABDOMEN: Soft and nontender. EXTREMITIES: No significant edema. LAB DATA: Lab data revealed a BUN and creatinine of 15 and 0.74, potassium 4.6 and hemoglobin of 16.3. IMPRESSION: 1. Symptoms of dyspnea. No evidence to suggest congestive heart failure, possible tracheobronchitis. 2. History of coronary artery disease status post multiple stenting and coronary artery bypass grafting with redo surgery. 3. History of hypertension. RECOMMENDATION: I will stop his IV Lasix. I will increase the dose of the lisinopril. His Brilinta will be stopped. I have discussed that with Dr. Astrid Nance who is his primary business development sales executive and has recommended to stop it. We will continue to increase his activity. From the cardiac standpoint, he is stable and no further cardiac workup will be needed at this point. MMODL / IJN: [id number] /
--- NOTE | 2018-12-20 15:53 | P.PN ---
Subjective Progress Note Date: 12/20/18 Principal diagnosis: Right lower lobe pneumonia, cough related to pneumonia, COPD, coronary artery disease, hypertension hypertensive cardiovascular disease, morbid obesity, heart failure acute on chronic systolic 12/20/2018, patient seen and evaluated examined during the rounds doing well he has the an echocardiogram as well as computed tomography scan yesterday which reviewed the computed tomography scan showed right lower lobe pneumonia, echocardiogram revealed ejection fraction of 50-55% no evidence of pulmonary hypertension, patient is tolerating antibiotics well his cough and congestion improved significantly remains afebrile 78-year-old male with history of significant coronary artery disease history of prior bypass surgery has been more short of breath for last 2-3 months but however about a week ago having cough congestion and low-grade fever up to point getting more short of breath than baseline for the last 2 days decided to come in the hospital for further evaluation, x-ray is suggestive of right lower lobe developing infiltrate, denies any hemoptysis denies any night sweats fever or chills he's been evaluated by cardiovascular services for chronic congestive heart failure and coronary artery disease Objective - Vital Signs Vital signs: Vital Signs Temp 98.5 F 12/20/18 07:45 Pulse 80 12/20/18 11:36 Resp 18 12/20/18 07:45 BP 152/73 12/20/18 07:45 Pulse Ox 92 L 12/19/18 16:00 Intake & Output 12/19/18 12/20/18 12/20/18 18:59 06:59 18:59 Intake Total 700 360 Output Total 1650 200 Balance -1650 500 360 Weight 103 kg 101.8 kg 101.8 kg Intake: Oral 700 360 Output: Urine 1650 200 Other: Voiding Method Urinal Urinal # Voids 1 - Exam - Constitutional General appearance: cooperative, disheveled, mild distress, morbidly obese - EENT Eyes: EOMI, PERRLA, normal appearance ENT: normal oropharynx Ears: bilateral: normal - Neck Neck: normal ROM Carotids: bilateral: upstroke normal Thyroid: bilateral: normal size - Respiratory Respiratory: bilateral: diminished, rales (Right more than left), negative: CTA, dullness, rhonchi, wheezing, prolonged expiration, prolonged inspiration, other - Cardiovascular Rhythm: regular Heart sounds: normal: S1, S2 - Gastrointestinal General gastrointestinal: decreased bowel sounds, distended, normal bowel sounds - Integumentary Integumentary: normal - Neurologic Neurologic: CNII-XII intact - Musculoskeletal Musculoskeletal: gait normal, generalized weakness, strength equal bilaterally - Psychiatric Psychiatric: A&O x's 3, appropriate affect, intact judgment & insight - Labs CBC & Chem 7: 12/20/18 07:11 12/20/18 07:11 Labs: Abnormal Lab Results - Last 24 Hours (Table) 12/19/18 12/19/18 12/20/18 Range/Units 17:04 20:30 06:02 MCHC (31.0-37.0) g/dL Chloride (98-107) mmol/L Carbon Dioxide (22-30) mmol/L Glucose (74-99) mg/dL POC Glucose (mg/dL) 129 H 154 H 121 H (75-99) mg/dL 12/20/18 12/20/18 12/20/18 Range/Units 07:11 07:11 11:44 MCHC 30.8 L (31.0-37.0) g/dL Chloride 96 L (98-107) mmol/L Carbon Dioxide 37 H (22-30) mmol/L Glucose 135 H (74-99) mg/dL POC Glucose (mg/dL) 134 H (75-99) mg/dL Assessment and Plan Assessment: Right lower lobe pneumonia Increased cough congestion shortness of breath or probably related to that Coronary Artery disease Hypertension hypertensive cardiovascular disease Moderate obesity Component of heart failure suspect acute on chronic systolic heart failure Plan: Continue gentle diuresis Continue broad spectrum antibiotics, can be switched to oral at the time of discharge Agree with bronchodilators Patient might need a sleep study as outpatient Further evaluation as outpatient Further plan of care as per clinical response of the patient
--- NOTE | 2018-12-20 19:27 | HP ---
HISTORY AND PHYSICAL SUBJECTIVE: This is a white male who is admitted with exertional dyspnea, unstable angina and possible pneumonia due to worsening respiratory distress of acute nature. He is unable to lay flat at night or sleep due to significant dyspnea. He has had no hemoptysis. He has had no significant weight gain. Pulmonary saw him and thought he had pneumonia. He has been started on antibiotics and steroids. Cardiology is assessing him. PAST MEDICAL HISTORY: Coronary artery disease. Recent carotid artery surgery, borderline diabetes, hypertension, dyslipidemia, GERD. He has had back surgery, CABG surgery, heart catheterization, stents, orthopedic surgeries, carotid endarterectomy as mentioned above. 14-point review of systems as mentioned. FAMILY HISTORY: Mother diabetes mellitus and liver cancer. Father had cancer of the colon and hypertension. MEDICATIONS: Medications at home include: Brilinta, Zestril, Mevacor, Imdur, Coreg, Ecotrin. PHYSICAL EXAMINATION: HEENT: Pupils equal, round, reactive to light and accommodation. CARDIOVASCULAR: S1, S2. HEMATOLOGY negative Homans. PSYCH: Fair mood and affect. OPHTHALMOLOGIC: Pupils equal, round, reactive to light and accommodation. LUNGS show scattered rales and rhonchi x4. CARDIOVASCULAR S1, S2. ASSESSMENT: 1. Right lower lobe pneumonia. 2. Increased shortness of breath, unclear etiology. 3. Unstable angina. 4. Coronary artery disease. 5. Carotid artery disease. 6. Hypertensive. 7. Diabetes mellitus. Cardiology and Pulmonary clearance will be given prior to discharge and evaluate for significant shortness of breath. MMODL / IJN: [id number] /
--- NOTE | 2018-12-20 20:36 | DS ---
DISCHARGE SUMMARY DISCHARGE MEDICATIONS: 1. Aspirin 81 mg daily. 2. Coreg 6.25 b.i.d. 3. Nitro sublingual p.r.n. 4. Brilinta 90 mg b.i.d. 5. Mevacor 20 mg daily. 6. Imdur 30 mg q.a.m. 7. Lisinopril 5 mg daily. 8. Lasix 20 mg daily. 9. Augmentin 875 1 b.i.d. for a week. 10.Medrol Dosepak. CONDITION: Stable. PROGNOSIS: Guarded. Ambulate as tolerated. HOSPITAL COURSE: White male came in with exertional dyspnea of significant nature, unable to sleep due to significant shortness of breath. He was treated for right lower lobe pneumonia, diagnosed by Pulmonology. He was switched to oral antibiotics as he was saturating good on room air. He is cleared for myocardial infarction from cardiac standpoint. Echo was good. CT scan of the chest showed no significant pulmonary embolism. He will follow up as an outpatient in my office. MMKASH / PHOEBEN: [id number] /
[2018-12-21] MEDS ORDERED: FUROSEMIDE 20 MG TAB PO SCH (09:00)
[2018-12-21] MEDS ORDERED: LISINOPRIL 5 MG TAB PO SCH (09:00)
--- NOTE | 2018-12-23 02:55 | CDI ---
Documentation Clarification Form Date:12/23/18 From: Cj Nance Phone: call to [phone] Admit Date: 12/19/2018 1:01:00 PM Patient Name: Blanco Thakur Visit Number: [id number] Discharge Date: 12/20/2018 4:04:00 PM ATTENTION: The Clinical Documentation Specialists (CDI) and [facility] Coding Staff appreciate your assistance in clarifying documentation. Please respond to the clarification below the line at the bottom and electronically sign. The CDI & [facility] Coding staff will review the response and follow-up if needed. Please note: Queries are made part of the Legal Health Record. If you have any questions, please contact the author of this message via ITS. Dr. Willie Conley CHF is documented in the Progress note 12/20/18 as Component of CHF suspect Acute on Chronic Systolic heart failure, Continue gentle diuresis(Iv lasix) and discharged with lasix 20mg In your professional opinion, can you please clarify the acuity and type of CHF if known? Systolic Heart Failure: Acute Chronic Acute on Chronic Unable to Determine Other, please specify MTDD
== END 2018-12-20 16:04 | disposition home or self-care (01) ==
LOC: 2SICU 11:11 → INTOOBSV 13:01 → OBSVTOIN 13:01 → 3SCARD 21:09
PROVIDERS: ADMIT Family Medicine; ATTEND Family Medicine
DX: J18.1 Lobar pneumonia, unspecified organism (principal); E11.9 Type 2 diabetes mellitus without complications; I25.10 Atherosclerotic heart disease of native coronary artery without angina pectoris; I25.82 Chronic total occlusion of coronary artery; I11.0 Hypertensive heart disease with heart failure; M54.9 Dorsalgia, unspecified; G89.29 Other chronic pain; K21.9 Gastro-esophageal reflux disease without esophagitis; E66.01 Morbid (severe) obesity due to excess calories; Z68.29 Body mass index [BMI] 29.0-29.9, adult; E78.5 Hyperlipidemia, unspecified; I83.90 Asymptomatic varicose veins of unspecified lower extremity; K57.90 Diverticulosis of intestine, part unspecified, without perforation or abscess without bleeding; M19.90 Unspecified osteoarthritis, unspecified site; Z79.02 Long term (current) use of antithrombotics/antiplatelets; Z79.82 Long term (current) use of aspirin; Z79.899 Other long term (current) drug therapy; Z91.041 Radiographic dye allergy status; Z91.048 Other nonmedicinal substance allergy status; Z95.1 Presence of aortocoronary bypass graft; Z98.890 Other specified postprocedural states; I25.2 Old myocardial infarction; Z87.891 Personal history of nicotine dependence; Z95.5 Presence of coronary angioplasty implant and graft; Z80.0 Family history of malignant neoplasm of digestive organs; Z82.49 Family history of ischemic heart disease and other diseases of the circulatory system; Z83.3 Family history of diabetes mellitus
CPT/HCPCS: 96376 ×2; 96365; 96366 ×2; 96375; 94640 ×4; 85379; 83880; 80053; 80048; 85025 ×2; 71046; 71250; G0378 ×2; G0379; C8929; J1940 ×2; J0696 ×2; C9113 ×2; Q9950; 93306